=== PATIENT | female | born 1980 | race Caucasian/White ===

== ENCOUNTER 2024-09-06 16:10 | Emergency (ER) | payer BC ==
[~2024-09-06] VITALS: Ht 172.7 cm; Wt 70.3 kg
[2024-09-06 16:38] VITALS: BP 122/81; TEMP 98.1
[2024-09-06] MEDS ORDERED: ACETAMINOPHEN ES 500 MG TABLET PO ONE (17:00)
[2024-09-06 17:05] VITALS: O2SAT 99
== END 2024-09-06 17:11 | disposition home or self-care (01) ==
LOC: ER 16:57
DX: S09.8XXA Other specified injuries of head, initial encounter (principal); W22.09XA Striking against other stationary object, initial encounter; Y93.89 Activity, other specified; Y92.89 Other specified places as the place of occurrence of the external cause; Y99.8 Other external cause status